=== PATIENT | female | born 1980 ===

== ENCOUNTER 2021-01-24 07:51 | Day surgery (SDC) | payer OTHER ==
[~2021-01-24 07:51] MED LIST: LISINOPRIL-HCT1 EAC2 PO
[2021-01-24] MEDS ORDERED: NAPR500T14 PO (08:19)
[2021-01-24] MEDS ORDERED: MORGIDOX100 MG PO (08:19)
== END 2021-01-24 12:10 | disposition home or self-care (01) ==
LOC: CIR.AMB 07:51
PROVIDERS: ATTEND Obstetrics & Gynecology
DX: D25.0 Submucous leiomyoma of uterus (principal); N84.0 Polyp of corpus uteri; N80.0 Endometriosis of uterus